=== PATIENT | male | born 1965 | race Caucasian/White ===

== ENCOUNTER 2018-03-17 08:50 | Day surgery (SDC) | payer OTHER ==
[~2018-03-17 08:50] MED LIST: CEFAZOLIN 1 GM/D5W RTU 1 GM/50 ML RTUPB IV PRN
[2018-03-17] MEDS ORDERED: MIDAZOLAM 2 MG/2 ML INJ ONE (09:18)
[2018-03-17] MEDS ORDERED: FENTANYL CITRATE INJ/PF 100 MCG/2 ML AMPUL ONE (09:18)
[2018-03-17] MEDS ORDERED: HYDROMORPHONE HCL INJ/PF 2 MG/ML AMPULE ONE (09:18)
[2018-03-17] MEDS ORDERED: BUPIVACAINE HCL 0.5 % INJ/PF 30 ML SDV ONE ×2 (09:18→10:33)
[2018-03-17] MEDS ORDERED: PROPOFOL INJ 200 MG/20 ML VIAL IV ONE (09:19)
[2018-03-17] MEDS ORDERED: LIDOCAINE 2% INJ (20 MG/ML) 20 ML MDV ONE (09:24)
[2018-03-17] MEDS ORDERED: BACITRACIN INJ 50,000 UNIT VIAL ONE (09:28)
[2018-03-17] MEDS ORDERED: POLYMYXIN B SULFATE INJ 500000 UNIT VIAL ONE (09:28)
[2018-03-17] MEDS ORDERED: NORMAL SALINE INJ/PF 0.9% 10 ML SDV ONE (09:33)
--- NOTE | 2018-03-17 13:16 | [facility] DISCHARGE SUMMARY E ---
[facility] Discharge Summary NAME: DILEEP MCFADDEN AGE: 52Y ADMITTED: 03/17/2018 DISCHARGED: 03/17/2018 SURGICAL PROCEDURE: Decompression of neuroma, third interspace, left foot. POSTOPERATIVE DIAGNOSIS: Neuroma, third interspace, left foot. SURGEON: Nisha Whitlock DPM GALLERY DIRECTOR: Parth Manzano DPM SUMMARY: The patient was admitted to [facility] with a chief complaint of painful left foot in the second and third metatarsophalangeal joints. The patient had an MRI which showed that there was a neuroma in the 2nd interspace left foot. Since he had no cessation of his symptoms via conservative therapy, he desired to have this problem surgically corrected. He underwent the above surgical procedure without any complications and was transferred to the recovery room. The patient was discharged with a surgical shoe and ice pack, postoperative instructions, and postoperative prescriptions for Percocet 5 mg/325 mg #40, Phenergan 25 mg #20, and cephalexin 500 mg #4. He was given a follow-up appointment in doctor's office in 1 week. The patient was discharged from [facility]. DICTATING PHYSICIAN: NISHA WHITLOCK D.P.M. [id number] PHY#: [id number] ID: [id number] JOB#: [id number] ACCT: [id number] cc:NISHA WHITLOCK DPM > MTDD
--- NOTE | 2018-03-17 13:26 | [facility] OPERATIVE REPORT E ---
[facility] Operative Report NAME: DILEEP MCFADDEN AGE: 52Y DATE OF SURGERY: 03/17/2018 ROOM: PREOPERATIVE DIAGNOSIS: NEUROMA SECOND INTERSPACE LEFT FOOT AND DISLOCATED THIRD TOE LEFT FOOT. POSTOPERATIVE DIAGNOSIS: NEUROMA THIRD INTERSPACE LEFT FOOT. OPERATION: Decompression of neuroma third interspace, left foot. SURGEON: NISHA KOEHLER DPM PHOTO OFFSET PRINTER: Parth Manzano DPM PROCEDURE: Following induction of IV regional local anesthesia, the left foot and leg was prepped and draped in the usual sterile manner. A pneumatic tourniquet was placed around the left ankle and inflated to 250 mmHg after exsanguination of the limb with an Esmarch bandage. The following surgical procedure was then performed. Decompression of neuroma, third interspace left foot. Attention was directed to the dorsal aspect of the left foot where an approximately 4 cm dorsal linear incision was made at the second interspace and extended distally from the second interspace proximally to approximately 4 cm. The incision was deepened via blunt dissection. All bleeders were clamped and bovied as necessary for the purposes of hemostasis. The interspace was inspected and no neuroma was noted. Attention was then directed into the third interspace. The third interspace was opened up via blunt dissection and the neuroma was in the third interspace. The nerve was followed proximally to the intermetatarsal ligament, where utilizing a bipolar Bovie, the intermetatarsal ligament was incised. The nerve was then followed distally into the interspace and it was noted that it was a very large mass containing the nerves and blood vessels. Utilizing blunt dissection, the nerve was into 2 main lateral and medial branches. Both of these branches were decompressed from thickened tissue around them by sharp dissection. The nerves were then followed distally going to the fourth toe and the third toe and these were freed from any fibrous tissue that is attached to them. During the freeing of the nerves from fibrous tissue, 2 small white nodules were noted. These were removed, they were free-floating, and sent for pathology. The interspace was inspected again. It was noted there were again 2 branches. They were freed from all fibrous tissue and had more normal appearance to them. The area was then flushed with copious amounts of an antibacterial saline solution. The subcutaneous tissue was then coapted and maintained utilizing simple interrupted sutures of 4-0 Vicryl and the skin was coapted and maintained utilizing a combination of horizontal mattress sutures and simple sutures of 5-0 Nylon. A dry sterile dressing was then applied, consisting of Osman silk, 4 x 4, Conform, Kerlix, and Coban. The pneumatic tourniquet was released. It as noted that all digits were warm and viable and the patient was transferred to the recovery room. DICTATING PHYSICIAN: NISHA KOEHLER D.P.M. [id number] PHY#: [id number] ID: [id number] JOB#: [id number] ACCT: [id number] cc:NISHA KOEHLER DPM >
--- NOTE | 2018-03-18 09:09 | RADIOLOGY REPORT (SQ) ---
EXAM DESCRIPTION: FOOT LEFT 2 VIEWS; NO CHG FLUORO COMPLETED DATE/TIME: 03/18/2018 8:58 am REASON FOR STUDY: LT FOOT EXCISION G57.62 LESION OF PLANTAR NERVE, LEFT LOWER LIMB COMPARISON: None. FLUOROSCOPY TIME: 3 seconds Spot images saved to PACS. TECHNIQUE: Intra-operative images acquired during surgical procedure to evaluate progress. NUMBER OF IMAGES: 1 LIMITATIONS: None. FINDINGS: Fluoroscopy was provided for intraoperative procedure. Please refer to the operative repo rt for further discussion. IMPRESSION: IMAGE(S) OBTAINED DURING PROCEDURE. COMMENT: Quality ID 145: Final reports for procedures using fluoroscopy that document radiation exp osure indices, or exposure time and number of fluorographic images (if radiation exposure indices are not available) Please consult full operative report of the attending physician for description of the procedure. TECHNICAL DOCUMENTATION: JOB ID: [id number] [employer]- All Rights Reserved Reading location - IP/workstation name: [email or web address]
--- NOTE | 2018-03-18 09:09 | RADIOLOGY REPORT (SQ) ---
EXAM DESCRIPTION: FOOT LEFT 2 VIEWS; NO CHG FLUORO COMPLETED DATE/TIME: 03/18/2018 8:58 am REASON FOR STUDY: LT FOOT EXCISION G57.62 LESION OF PLANTAR NERVE, LEFT LOWER LIMB COMPARISON: None. FLUOROSCOPY TIME: 3 seconds Spot images saved to PACS. TECHNIQUE: Intra-operative images acquired during surgical procedure to evaluate progress. NUMBER OF IMAGES: 1 LIMITATIONS: None. FINDINGS: Fluoroscopy was provided for intraoperative procedure. Please refer to the operative repo rt for further discussion. IMPRESSION: IMAGE(S) OBTAINED DURING PROCEDURE. COMMENT: Quality ID 145: Final reports for procedures using fluoroscopy that document radiation exp osure indices, or exposure time and number of fluorographic images (if radiation exposure indices are not available) Please consult full operative report of the attending physician for description of the procedure. TECHNICAL DOCUMENTATION: JOB ID: [id number] [employer]- All Rights Reserved Reading location - IP/workstation name: [email or web address]
== END 2018-03-17 13:23 | disposition home or self-care (01) ==
LOC: SC 08:50
PROVIDERS: ATTEND Podiatrist Foot Surgery
DX: G57.62 Lesion of plantar nerve, left lower limb (principal); J30.2 Other seasonal allergic rhinitis; M19.90 Unspecified osteoarthritis, unspecified site; Z79.1 Long term (current) use of non-steroidal anti-inflammatories (NSAID); Z79.899 Other long term (current) drug therapy
CPT/HCPCS: 88305 ×2; 73620; 64726; J2250; J3490 ×5; J0690; J3010; J1170; J2704; 01470